=== PATIENT | male | born 1990 | race Caucasian/White ===

== ENCOUNTER 2018-12-28 13:06 | Inpatient (IN) ==
[2018-12-28 14:15] LABS: BASO# 0.01 X1000 (0.0-0.2); BASO% 0.1 % (0.0-0.8); EOS# 0.08 X1000 (0.0-0.7); EOS% 0.6 % (0.0-10.0); HEMATOCRIT 40.3 % (42.0-52.0); HEMOGLOBIN 13.5 g/dL (14.0-18.0); IMM GRAN# 0.02 X1000 (0.0-0.04); IMM GRAN% 0.1 % (0.0-0.5); LYMPH# 0.83 X1000 (1.2-3.4); LYMPH% 6.2 % (20.5-51.1); MCHC 33.5 g/dL (33-37); MCV 83.6 FL (81-99); MONO# 0.83 X1000 (0.11-0.59); MONO% 6.2 % (1.7-9.3); MPV 9.9 FL (7.4-10.4); NEUT# 11.65 X1000 (1.4-6.5); NEUT% 86.8 % (42.2-75.2); PLT 260 X1000 (130-400); RBC 4.82 XMIL (4.7-6.1); RDW 15.4 % (11.5-14.5); WBC 13.42 X1000 (4.8-10.8)
[2018-12-28 14:52] LABS: ALBUMIN 4.1 g/dL (3.5-5.0); CALCIUM 9.4 mg/dL (8.8-10.2); CREATININE 1.4 mg/dL (0.7-1.2); POTASSIUM 3.9 mmol/L (3.5-5.1); TOTAL BILIRUBIN 0.3 mg/dL (0.20-1.00); TOTAL PROTEIN 8.1 g/dL (6.3-8.3)
[2018-12-28] MEDS ORDERED: TORADOL IM ONE (15:19)
[2018-12-28] MEDS ORDERED: TORADOL IV ONE (15:25)
--- NOTE | 2018-12-28 16:28 | Diag Imaging Result Doc PS360 ---
CT EXT LOWER LEFT W/CON - 12/28/2018 INDICATION: SWELLING LT CALF CELLULITIS R/O ABSCESS VS NEC FA TECHNIQUE: CT left calf with intravenous contrast COMPARISON: None FINDINGS: In the medial belly of the gastrocnemius, there is an irregular, well-defined fluid collection with thin rim enhancement. This measures 3.6 x 4.2 x 5.7 cm in AP, lateral, and craniocaudal dimensions. There is surrounding subcutaneous edema extending down to the ankle. The arteries and veins of the lower leg all appear to be patent. Bones are intact. No soft tissue gas. IMPRESSION: Intramuscular abscess of the medial belly of the gastrocnemius of the left calf. Surrounding cellulitis of the lower leg. This exam was performed using automated exposure control, adjustment of mA or kV according to patient size, and/or use of iterative reconstruction technique Electronically signed by Sean Clark 12/28/2018 4:26 PM
--- NOTE | 2018-12-28 17:45 | PROVIDER DOCUMENTATION ---
This chart was entered by Pina Jeffers Scribe, acting as scribe for Rudolph Alexander DO. HPI-Musculoskeletal Pain/Inj - GENERAL Chief Complaint: Extremity Pain Stated Complaint: L-LEG KNOT/BLOOD CLOT? Time Seen by Provider: 12/28/18 13:54 Source: patient - HX OF PRESENT ILLNESS-MUSKULOSKELTAL Nature of Presenting Problem: Patient is a 28 year old male who presents with left lower leg pain with swelling and erythema that started 2 days ago. Report he is an IV drug user of Subutex. Denies history of Hep C and AIDS. Quality of Pain: reports: aching Severity in ED: mild Onset/Duration: 2 days ago Timing: still present, getting worse Modifying Factors: improves with: nothing Any recent injury?: No Locality of Occurance: Home Similar Symptoms Previously?: Yes (present for 2 days) Recently seen or treated by another doctor?: No - LOWER EXTREMITY PAIN/INJURY Lower Extremities Pain: leg: left (lower ) Context / Method of Injury: reports: unknown Associated Symptoms: reports: denies symptoms Review of Systems - Adult - REVIEW OF SYSTEMS - ADULT Constitutional: reports: fever. denies: chills, fatique Eyes: reports: no symptoms reported Ears, Nose, Mouth & Throat: reports: no symptoms reported Cardiovascular: reports: no symptoms reported Respiratory: reports: no symptoms reported Gastrointestinal: reports: no symptoms reported Genitourinary: reports: no symptoms reported Musculoskeletal: reports: see HPI, other (left lower leg pain). denies: back pain, neck pain Integumentary: reports: other (erythema to left lower leg). denies: hives, itching, rash Neurological: reports: no symptoms reported Psychiatric: reports: no symptoms reported Endocrine: reports: no symptoms reported Hematologic/Lymphatic: reports: no symptoms reported Allergic/Immunologic: reports: no symptoms reported All Other Systems: Reviewed and Negative Past History - Adult - PAST MEDICAL HISTORY-ADULT Review of Records: reports: Nursing Assessment Review, Medications Reviewed, Social history reviewed & non-contributory. Major Childhood Illnesses: reports: denies history Cardiovascular: reports: denies history Respiratory: reports: denies history Gastrointestinal: reports: denies history Obstetrical/Gynecological: reports: denies history Genitourinary: reports: denies history Musculoskeletal: reports: denies history Neurological: reports: denies history Psychiatric: reports: denies history Endocrine/Immune: reports: denies history Other Conditions: reports: denies history - PRIOR SURGERIES/PROCEDURES Surgical/Procedure History: reports: reviewed, not pertinent - IMMUNIZATION STATUS Childhood Immunizations: See Nurse Assessment Flu Vaccine: See Nurse Assessment - FAMILY HISTORY Family History: reviewed, not pertinent - SOCIAL HISTORY Smoking: cigarettes, greater than 1 pack/day Provider spent 3-5 mins advising pt. on dangers of tobacco.: Discussed manners to quit use, and f/u contacts for add'l counseling. Substance Use: other (Subutex) Physical Exam-Injury Related - Physical Exam-Injury Related Initial Vital Signs Reviewed: Yes General Appearance: alert, no apparent distress. negative: lethargic, slow to respond Neck: non-tender, normal inspection. negative: lymphadenopathy, tender lateral, tender midline Respiratory: chest non-tender, lungs clear, normal breath sounds. negative: crackles, rhonchi, wheezing Cardiovascular: normal peripheral pulses, regular rate, rhythm, systolic murmur (1/6 murmur at the apex.), other (mid systolic click). negative: tachycardia Peripheral Pulses: radial (R): 2+, radial (L): 2+, dorsalis-pedis (R): 2+, dorsalis-pedis (L): 1+ Abdominal Exam: normal bowel sounds, non tender, soft. negative: guarding, rebound Lymphatic: enlargement (left groin). negative: streaking Extremity: calf tenderness (left), erythema (left calf.), swelling (left lower leg), other (positive Savannah's sign to left. hardening to upper left calf. warmth present to left calf. left calf measuring 35 cm. right calf measuring 27 cm. multiple track solares to bilateral antecubital.). negative: deformity Integumentary: erythema (left calf), swelling (left lower leg), tenderness (left calf), warm (left calf), other (hardening to left calf. multiple track solares to bilateral antecubital.). negative: cyanosis, jaundice Neurologic: grossly normal. negative: aphasia, facial droop Psych/Mental Status: normal mood/affect, oriented x 3. negative: anxious, paranoid Progress - PLAN OF CARE/RESULTS Progress/Plan/Lab Results: Vital Signs - 8 hr 12/28/18 13:08 12/28/18 17:00 Temperature 100.9 F H 99.1 F Pulse Rate 96 H 82 Respiratory Rate 18 18 Blood Pressure 119/75 93/46 O2 Sat by Pulse Oximetry 100 92 L Laboratory Results - last 24 hr 12/28/18 12/28/18 13:52 13:52 WBC 13.42 H RBC 4.82 Hgb 13.5 L Hct 40.3 L MCV 83.6 MCH 28.0 MCHC 33.5 RDW Std Deviation 15.4 H Plt Count 260 MPV 9.9 Immature Gran % (Auto) 0.1 Neut % (Auto) 86.8 H Lymph % (Auto) 6.2 L Morris % (Auto) 6.2 Eos % (Auto) 0.6 Baso % (Auto) 0.1 Immature Gran # (Auto) 0.02 Neut # (Auto) 11.65 H Lymph # (Auto) 0.83 L Morris # (Auto) 0.83 H Eos # (Auto) 0.08 Baso # (Auto) 0.01 Sodium 140 Potassium 3.9 Chloride 104 Carbon Dioxide 25 Anion Gap 11 BUN 14 Creatinine 1.4 H Estimated GFR/1.73 m2 60 BUN/Creatinine Ratio 10 Glucose 144 H Calculated Osmolality 282 Calcium 9.4 Total Bilirubin 0.30 AST 21 ALT 10 Alkaline Phosphatase 92 Total Protein 8.1 Albumin 4.1 Globulin 4.0 Albumin/Globulin Ratio 1.0 Orders Category Date Time Status CT EXT LOWER LEFT W/CON [CT] Stat Exams 12/28/18 15:20 Completed CBC WITH DIFF [HEME] Stat Lab 12/28/18 13:52 Completed CMP [COMPREHENSIVE METABOLIC PANEL] [CHEM] Stat Lab 12/28/18 13:52 Completed UA NIMS W/REFLEX CULT PL [URINALYSIS] Stat Lab 12/28/18 18:56 Uncollected URINE DRUG SCREEN Stat Lab 12/28/18 18:56 Uncollected Ketorolac [Toradol] Med 12/28/18 15:25 Discontinued 30 mg IV NOW ONE Ketorolac [Toradol] Med 12/28/18 15:19 Discontinued 60 mg IM NOW ONE Nicotine Patch [Nicoderm Patch] Med 12/28/18 18:50 Discontinued 21 mg TD NOW ONE Venous U/S Left Leg Stat Ther 12/28/18 14:30 Completed Result Diagrams: 12/28/18 13:52 12/28/18 13:52 - CT/MRI 1 CT Study: Lower Ext (left) Impression: See EMR Report (CT EXT LOWER LEFT W/CON - 12/28/2018 INDICATION: SWELLING LT CALF CELLULITIS R/O ABSCESS VS NEC FA TECHNIQUE: CT left calf with intravenous contrast COMPARISON: None FINDINGS: In the medial belly of the gastrocnemius, there is an irregular, well-defined fluid collection with thin rim enhancement. This measures 3.6 x 4.2 x 5.7 cm in AP, lateral, and craniocaudal dimensions. There is surrounding subcutaneous edema extending down to the ankle. The arteries and veins of the lower leg all appear to be patent. Bones are intact. No soft tissue gas. IMPRESSION: Intramuscular abscess of the medial belly of the gastrocnemius of the left calf. Surrounding cellulitis of the lower leg. This exam was performed using automated exposure control, adj ustment of mA or kV according to patient size, and/or use of iterative reconstruction technique Electronically signed by Sean Clark 12/28/2018 4:26 PM 12/28/18 1626 Interpreting Physician: Sean Clark MD Dictated Date/Time: 12/28/18 1033 cc: Rudolph Alexander DO; None,PCP) - ULTRASOUND (By Radiology) 1 US Study: Lower Ext (left) Impression: Normal (no DVT per US tech.), See EMR Report - CONSULTS/PCP/HOSPITALIST Notification #1 *Consult/PCP/Hospitalist*: DR. VITALY RICE --WILL DO SURG IN THE AM Time Discussed: 19:45 (ADMIT HOSPITALIST GEN SURG CONSULT) #2 Consult: DR RICE Time Discussed: 19:30 (WILL DO SURG IN AM NPO TONIGHT ) Departure - Departure Date of Disposition Decision: 12/28/18 Time of Disposition Decision: 19:56 DIAGNOSIS: Cellulitis of leg, left, Abscess Disposition: ADMITTED INPATIENT 09 Certified Medical Emergency: Emergent Condition: Stable Referrals and Follow-Ups: None,PCP [Primary Care Provider] - Discharge Education: Steps to Quit Smoking, Ueyz-ma-Hlor, Substance Use Diso rder - Critical Care Note This patient required my direct & personal management of CC.: No Attestation - Physician/ LUBA Attestation Patient care was provided by Advanced Practice Provider:: No The physician spent face to face time with patient:: Yes Advanced Practice Provider documentation review:: Supervising physician onsite and consulted in the evaluation and care of this patient. The physician did have a face to face encounter with the patient. This chart was documented by the indicated scribe, (Pina Jeffers Scribe) and acc urately reflects the services I performed and decisions made by , Rudolph Alexander DO, as attested by the provider's signature.
[2018-12-28] MEDS ORDERED: NICODERM PATCH TD ONE (18:50)
[2018-12-28 20:53] LABS: URINE SOURCE CLEAN CATCH
[2018-12-28 21:11] LABS: UR AMPHETAMINES QUAL PRESUMPTIVE POSITIVE (NONE DETECT); UR BARBITUATES QUAL NONE DETECTED (NONE DETECT); UR BENZODIAZEPIN QUAL PRESUMPTIVE POSITIVE (NONE DETECT); UR CANNABINOIDS QUAL NONE DETECTED (NONE DETECT); UR COCAINE QUAL NONE DETECTED (NONE DETECT); UR METHADONE QUAL NONE DETECTED (NONE DETECT); UR OPIATES QUAL NONE DETECTED (NONE DETECT); UR OXYCODONE QUAL NONE DETECTED (NONE DETECT); UR PCP QUAL NONE DETECTED (NONE DETECT)
[2018-12-28 21:15] LABS: BILIRUBIN URINE NEGATIVE (NEGATIVE); BLOOD URINE NEGATIVE (NEGATIVE); COLOR YELLOW; GLUCOSE URINE NEGATIVE (NEGATIVE); KETONE URINE NEGATIVE (NEGATIVE); LEUKOCYTES URINE NEGATIVE (NEGATIVE); NITRITE URINE NEGATIVE (NEGATIVE); PROTEIN URINE TRACE mg/dL (NEGATIVE); SP GRAVITY URINE > 1.050; TURBIDITY URINE CLEAR (CLEAR); UROBILINOGEN URINE NORMAL (NORMAL)
[2018-12-28 21:33] LABS: UR EPITHELIAL CELLS >10 /HPF (<10); URINE BACTERIA NEGATIVE /HPF; URINE CASTS GRANULAR PRESENT; URINE CRYSTALS NONE SEEN; URINE RBC <10 /HPF (<10); URINE SMALL ROUND CELLS NONE SEEN; URINE WBC 20-40 /HPF (<10); URINE YEAST NONE SEEN
[2018-12-28] MEDS ORDERED: ZOFRAN IV PRN (22:38)
[2018-12-28] MEDS ORDERED: VANCOMYCIN IV PER PHARMACY MISC SCH (22:38)
[2018-12-28] MEDS ORDERED: TYLENOL PO PRN (22:38)
[2018-12-28] MEDS: NS 1,000 ML IV SCH (23:21)
[2018-12-28] MEDS: LOVENOX SUBQ SCH (23:36)
[2018-12-28] MEDS: CLINDAMYCIN 600 MG/D5W 600 MG/50 ML IVPB IV SCH (23:53)
[2018-12-29] MEDS ORDERED: VANCOMYCIN 1,800 MG in NS 250 ML IV ONE (01:30)
--- NOTE | 2018-12-29 03:31 | HISTORY AND PHYSICAL ---
CHIEF COMPLAINT: Calf pain. HISTORY OF PRESENT ILLNESS: This is a 28-year-old male with no past medical history other than narcotic abuse with chronic Subutex use. He sometimes shoots up the Subutex. At any rate, he came in with a complaint of swelling to his left calf that came up 2 days ago. He was worried that he possibly had a blood clot. A CT scan was obtained of the calf which showed an intramuscular abscess of the medial belly of the gastrocnemius of the left calf with surrounding lower leg cellulitis. The abscess measured 3.6 x 4.[address] Aquino was consulted and will see the patient tomorrow morning for surgical intervention. He will be placed on IV antibiotics and has been admitted to the medical floor. PAST MEDICAL HISTORY: IV drug use and chronic opioid dependence. PREVIOUS SURGICAL HISTORY: Right fifth digit repair and left ankle repair. SOCIAL HISTORY: Lives at home with his parents. Does not work. Smokes 1 pack of cigarettes per day. Uses alcohol occasionally. Uses IV Subutex occasionally. FAMILY HISTORY: Denies any chronic illnesses in first-degree relatives. ALLERGIES: Morphine, penicillin and tramadol. HOME MEDICATIONS: Subutex 8 mg sublingual daily. REVIEW OF SYSTEMS: Fourteen-point review of systems conducted with the patient. He has had left warmth, calf pain, subjective fever and chills. All other systems reviewed and found to be negative. Other pertinent positives listed above in the HPI. PHYSICAL EXAMINATION: VITAL SIGNS: Temperature 98.7, pulse 80, respirations 19, blood pressure 103/70, oxygen saturation 100% on room air. GENERAL: Pleasant 28-year-old male lying in the medical floor bed, answers all questions appropriately, alert and oriented x3. HEENT: Head is atraumatic, normocephalic. Pupils equal, round, reactive to light. Extraocular eye movement intact. Sclerae are anicteric. Conjunctiva is pink. Oral mucosa is dry. NECK: Supple. No JVD. No thyromegaly. Trachea is midline. No cervical lymphadenopathy. CARDIAC: S1, S2 appreciated. No murmurs, gallops or rubs. LUNGS: Clear to auscultation bilaterally. No rhonchi, wheezes, rales. Symmetric rise and fall with respirations. ABDOMEN: Soft, nondistended and nontender. Bowel sounds present all 4 quadrants, normoactive. No pulsatile mass. No organomegaly. EXTREMITIES: No clubbing, cyanosis, or edema. Left calf is warm to touch, roughly 3 cm area of induration noted by palpation to the left calf. Mild erythema noted. GENITOURINARY: No bladder distention. Patient voids. Otherwise deferred. NEUROLOGICAL: Alert and oriented x3. No focal motor deficits. Otherwise nonfocal examination. DIAGNOSTIC DATA: WBC 13.42, hemoglobin 13.5, hematocrit 40.3, platelet count 260,000. Sodium 140, potassium 3.9, chloride 104, carbon dioxide 25, BUN 14, creatinine 1.4, glucose 144. Urine unremarkable. Toxicology screen positive for benzodiazepines and amphetamines. ASSESSMENT AND PLAN: 1. Left leg cellulitis with abscess. Will treat with vancomycin and clindamycin. He received Toradol in the emergency room. Will give Tylenol as needed for pain. Consult Dr. Aquino for drainage of intramuscular abscess. 2. Tobacco dependence. Will give nicotine patch. 3. Polysubstance abuse. Counseled the patient on the perils of taking drugs intravenously. He noted that he understood. 4. Leukocytosis secondary to #1. 5. Fluid volume depletion with mild acute kidney injury. Normal saline at 125 mL/hour. 6. Further recommendations per the patient's clinical course. Dictated by AVINASH Cowart for Mirna Ireland MD cc: AVINASH Cowart MD Independent exam performed by me at bedside and was notable for 4x4cm swelling of the L medial gastrocnemius area without any overlying erythema. The swelling is not attached to surrounding structures and is moderately tender and well circumscribed. Consider echo if persistent bacteremia persists. MTDD
[2018-12-29] MEDS: CLINDAMYCIN 600 MG/D5W 600 MG/50 ML IVPB IV SCH ×2 (06:11→18:03)
--- NOTE | 2018-12-29 06:20 | GENERAL SURGERY CONSULTATION ---
DATE: 12/29/2018 REQUESTING PHYSICIAN: Hospitalist. REASON FOR CONSULTATION: Consult concerning abscess in the leg. HISTORY OF PRESENT ILLNESS: A 28-year-old gentleman, with no real past medical history other than narcotic abuse, who presents with leg swelling. He does have a history of sometimes shooting up his Subutex. He has had swelling in his left calf for 2 days. He denies any injections in the area. He was concerned initially he had a blood clot. He came in and had a CT scan that showed an abscess. He has been admitted to the hospitalist service and started on IV antibiotics. I was asked to weigh an opinion. He is still hurting in the left calf. PAST MEDICAL HISTORY: IV drug abuse, and chronic opioid dependency. PAST SURGICAL HISTORY: Previous orthopedic repairs. SOCIAL HISTORY: Lives at home. Smokes. History of narcotic abuse. FAMILY HISTORY: Denies any major medical problems. ALLERGIES: Morphine, penicillin, and tramadol. HOME MEDICATIONS: Subutex sublingual. REVIEW OF SYSTEMS: A full 10 point review of systems obtained and negative except as specified in the HPI. PHYSICAL EXAMINATION: Vital Signs: The patient's current temperature is 101.4 degrees. The remainder of vital signs have been stable. General: No acute distress. Alert, interactive, male, looks stated age. HEENT: Normocephalic, atraumatic. Pupils equal, round, and reactive to light. Mucous membranes moist. Oropharynx benign. Neck: Supple. Trachea midline. Cardiovascular: Regular rate and rhythm. Lungs: Grossly clear. Abdomen: Soft, nontender, nondistended. Extremities: Swelling noted in the left calf posteriorly. Used the ultrasound to identify the fluid collection. I was able to aspirate purulence, which we sent for culture. Vascular: All extremities perfused. Skin: As noted above. Neurologic: Grossly intact. LABORATORY: White blood cell count 13, hematocrit 40, platelet count 260,000. The remainder of labs are reviewed. Urine drug screen reviewed. ASSESSMENT AND PLAN: A 28-year-old gentleman with left calf abscess. Left calf abscess: At this time, it looks intramuscular. We will plan on incision and drainage in the operating room today. He has been made NPO. We discussed the risks, benefits, and alternatives. We will plan on intervention today. cc: Andrew Aquino MD
[2018-12-29 06:53] LABS: BASO# 0.01 X1000 (0.0-0.2); BASO% 0.1 % (0.0-0.8); EOS# 0.06 X1000 (0.0-0.7); EOS% 0.4 % (0.0-10.0); HEMATOCRIT 34.8 % (42.0-52.0); HEMOGLOBIN 11.6 g/dL (14.0-18.0); IMM GRAN# 0.03 X1000 (0.0-0.04); IMM GRAN% 0.2 % (0.0-0.5); LYMPH# 1.83 X1000 (1.2-3.4); LYMPH% 13.7 % (20.5-51.1); MCHC 33.3 g/dL (33-37); MCV 83.9 FL (81-99); MONO# 1.32 X1000 (0.11-0.59); MONO% 9.9 % (1.7-9.3); MPV 9.6 FL (7.4-10.4); NEUT# 10.15 X1000 (1.4-6.5); NEUT% 75.7 % (42.2-75.2); PLT 256 X1000 (130-400); RBC 4.15 XMIL (4.7-6.1); RDW 15.3 % (11.5-14.5)
[2018-12-29 07:22] LABS: AGAP 8; BUN 11 mg/dL (8-22); CALCIUM 8.2 mg/dL (8.8-10.2); CHLORIDE 105 mmol/L (98-107); COSMO 274; CREATININE 0.9 mg/dL (0.7-1.2); ESTIMATED GFR > 60; GLUCOSE 112 mg/dL (70-104); POTASSIUM 3.7 mmol/L (3.5-5.1); SODIUM 137 mmol/L (136-145); TCO2 24 mmol/L (25-35)
--- NOTE | 2018-12-29 10:32 | PROGRESS NOTE ---
DATE: 12/29/2018 SUBJECTIVE: Patient reports still complaining of fever and pain in the left leg. OBJECTIVE: Vital Signs: Temperature 101.4 degrees, heart rate 86, respiratory rate 18, blood pressure 100/55, O2 saturation 97% on room air. General Examination: This is a 28-year-old male, lying in bed, in no acute distress. Cardiovascular: S1, S2 heard. No murmurs, gallops, or rubs. Regular rate and rhythm. Respiratory: Clear bilaterally to auscultation. No work of breathing or using accessory muscles. Abdomen: Soft, nontender to palpation. Bowel sounds present. No organomegaly. Extremities: Left calf is warm to touch, covered by dressing now. Neurological: Patient is alert and oriented x3. Moves 4 extremities. LABORATORY DATA: Reviewed. White cell count 13.4. Normal BMP. ASSESSMENT AND PLAN: 1. Left leg cellulitis with an abscess. Dr. Aquino from General Surgery has evaluated this patient. He is going to be taken to the OR today. We will continue with vancomycin and clindamycin. 2. IV drug abuse. Patient is using IV drugs. He is still complaining of fever that has been documented in the chart. So, at this point, I checked with the patient and he is okay to do a hepatitis panel and HIV. We are NOT going to use any opiates for managing pain on this patient. 3. Leukocytosis, still elevated. 4. Acute kidney injury. Resolved. 5. Disposition. We are following the lead from General Surgery. cc: Charlie Walker MD MTDD
[2018-12-29] MEDS: NICODERM PATCH TD SCH (11:21)
[2018-12-29] MEDS: SUBUTEX SL SCH (11:21)
[2018-12-29] MEDS ORDERED: DIPRIVAN 1% ONE (11:46)
[2018-12-29] MEDS ORDERED: FENTANYL ONE (11:46)
[2018-12-29] MEDS ORDERED: ROBINUL ONE (11:47)
[2018-12-29] MEDS ORDERED: XYLOCAINE-MPF 2% ONE (11:47)
[2018-12-29] MEDS ORDERED: PRECEDEX ONE (12:10)
[2018-12-29] MEDS ORDERED: SODIUM CHLORIDE 0.9% 20 ML ONE (12:11)
[2018-12-29] MEDS ORDERED: OFIRMEV 1000 MG/ISOTONIC SOLN 1,000 MG/100 ML BOTTLE ONE (12:11)
--- NOTE | 2018-12-29 13:43 | OPERATIVE NOTE ---
PROCEDURE DATE: 12/29/2018 PREOPERATIVE DIAGNOSIS: Left intramuscular abscess of the calf. POSTOPERATIVE DIAGNOSIS: Left intramuscular abscess of the calf. PROCEDURE PERFORMED: Ultrasound-guided incision and drainage of left calf intramuscular abscess. SURGEON: Dr. Andrew Aquino. SUPERVISOR MOLD YARD: None. ANESTHESIA: General endotracheal. INTRAOPERATIVE FINDINGS: Ultrasound showed the area in the calf of abscess, able to lee it on the skin. COMPLICATIONS: None at time of this dictation. ESTIMATED BLOOD LOSS: 10 mL. SPECIMENS REMOVED: None. BRIEF HISTORY: A 28-year-old gentleman who had a left leg abscess. It was felt he would benefit from drainage. The risks, benefits, and alternatives were discussed. All questions answered. DESCRIPTION OF PROCEDURE: After informed consent was obtained, patient was brought to the operative theatre, transferred to the operating table, placed in the supine position. General endotracheal anesthesia was then performed without complication. A formal time-out was then performed confirming patient, date, procedure. All were in agreement at that time. Attention was given to the left leg, which was prepped and draped in sterile fashion. After a time-out, we used the ultrasound to identify the area where most of the abscess was located. We marked this on the skin, and made an incision along the longitudinal axis of the leg, carried down through the muscles. It was intramuscular abscess. I was able to drain it. We irrigated it out. It did track significantly close to the bone, but did not involve the bone. We irrigated out until the suction fluid was clear. We then packed quarter-inch iodoform packing into the wound. We placed a sterile dressing. The patient tolerated the procedure well, was transferred back to the recovery room in stable condition. cc: Andrew Aquino MD
--- NOTE | 2018-12-29 14:42 | Extremity Venous Study ---
PROCEDURE NAME: Venous U/S Left Leg - 12/28/2018 REQUESTING PHYSICIAN: Dr. Alexander. ENTRY LEVEL AUTOMOTIVE TECHNICIAN: Riddhi. INDICATIONS: Painful calf knot. EQUIPMENT: [employer] Vivid E9 ultrasound system with a 9 L-D transducer. FINDINGS: Images of the left lower extremity venous system with a comparison shot to the right common femoral vein were obtained in both sagittal and transverse planes. Doppler was used to evaluate veins for spontaneity, phasicity, respiratory excursion, and digital augmentation. RESULTS: A complex mass was noted in the left calf which may represent a mass versus abscess. I recommend getting a dedicated CT study of the lower extremity. There was no obvious superficial or deep venous thrombosis noted on this study. cc: Andrew Aquino MD
--- NOTE | 2018-12-29 16:17 | ECHO REPORT ---
ORDER DATE: 12/29/2018 INTERPRETING PHYSICIAN: Dr. Medrano INDICATIONS: A 28-year-old male with drug abuse, fever, and endocarditis suspected. M-MODE MEASUREMENTS: Left ventricle end diastole: 4.2 cm. Left ventricle end systole: 2.5 cm. Posterior wall: 1.0 cm. Interventricular septum: 1.0 cm. Left atrium: 2.7 cm. Aortic diameter: 2.8 cm. SUMMARY OF 2-DIMENSIONAL IMAGIN. Left ventricular function is normal. Ejection fraction estimated at 60% to 65%. No wall motion abnormality noted. 2. The aortic valve appears to be grossly normal. It has three cusps. Color flow mapping unremarkable. 3. The pulmonic valve appears to be grossly normal. Color flow mapping unremarkable. 4. The tricuspid valve appears to be grossly normal. Color flow mapping unremarkable. 5. The mitral valve looks grossly normal. Color flow mapping unremarkable. 6. Pulsed wave Doppler of mitral inflow appears to be normal. 7. Tissue Doppler of septal and lateral mitral annulus is normal. There is no diastolic dysfunction. 8. There is no pericardial effusion, mass or thrombus. 9. The chambers are not dilated. CONCLUSIONS: In summary, this echocardiographic study appears to be essentially normal and I do not see evidence of any endocarditis. If patient demonstrates positive blood cultures for MRSA or another germ that typically causes endocarditis, consider doing a VELMA. cc: MD Charlie Cao MD
[2018-12-29 17:57] LABS: HIV ANTIBODY SCREEN SEE COMMENTS
[2018-12-29] MEDS: NS 1,000 ML IV SCH ×2 (18:02→18:03)
[2018-12-29] MEDS: LOVENOX SUBQ SCH (23:37)
[2018-12-30] MEDS ORDERED: VANCOMYCIN 1,650 MG in NS 250 ML IV SCH ×2 (01:30→14:00)
[2018-12-30] MEDS: NS 1,000 ML IV SCH ×3 (01:41→15:41)
[2018-12-30] MEDS: CLINDAMYCIN 600 MG/D5W 600 MG/50 ML IVPB IV SCH ×2 (01:41→08:40)
--- NOTE | 2018-12-30 06:12 | GENERAL SURGERY PROGRESS NOTE ---
DATE: 12/30/2018 SUBJECTIVE: Patient seems to be doing okay. OBJECTIVE: Vital Signs: Patient is currently afebrile. His vital signs are stable. General: No acute distress. Cardiovascular: Regular rate and rhythm. Lungs: Grossly clear. Abdomen: Soft, nontender, nondistended. Extremities: Left leg seems to be less tender. Removed packing. Nurse to place of Vashe wet-to-dry dressing. The patient tolerated removal fine. Microbiology cultures are still pending. ASSESSMENT AND PLAN: A 28-year-old gentleman status post incision and drainage of intramuscular abscess in the left calf. Status post drainage. At this time, recommend continuing antibiotics. He had a deep abscess to the area near the bone but not involving the bone. We will consult Infectious Disease for antibiotic recommendation. cc: Andrew Aquino MD
[2018-12-30 06:28] LABS: BASO# 0.02 X1000 (0.0-0.2); BASO% 0.2 % (0.0-0.8); EOS# 0.14 X1000 (0.0-0.7); EOS% 1.3 % (0.0-10.0); HEMATOCRIT 33.5 % (42.0-52.0); HEMOGLOBIN 10.8 g/dL (14.0-18.0); IMM GRAN# 0.02 X1000 (0.0-0.04); IMM GRAN% 0.2 % (0.0-0.5); LYMPH# 1.94 X1000 (1.2-3.4); LYMPH% 18.1 % (20.5-51.1); MCH 27.3 PG (27-31); MCHC 32.2 g/dL (33-37); MCV 84.8 FL (81-99); MONO# 1.18 X1000 (0.11-0.59); MPV 9.9 FL (7.4-10.4); NEUT# 7.43 X1000 (1.4-6.5); NEUT% 69.2 % (42.2-75.2); PLT 238 X1000 (130-400); RBC 3.95 XMIL (4.7-6.1); RDW 15.3 % (11.5-14.5); WBC 10.73 X1000 (4.8-10.8)
[2018-12-30 06:47] LABS: AGAP 6; BUN 11 mg/dL (8-22); CHLORIDE 112 mmol/L (98-107); COSMO 286; CREATININE 0.7 mg/dL (0.7-1.2); ESTIMATED GFR > 60; GLUCOSE 124 mg/dL (70-104); POTASSIUM 3.9 mmol/L (3.5-5.1); SODIUM 143 mmol/L (136-145); TCO2 25 mmol/L (25-35)
[2018-12-30] MEDS: SUBUTEX SL SCH (08:47)
[2018-12-30] MEDS: NICODERM PATCH TD SCH (08:47)
--- NOTE | 2018-12-30 12:22 | PROGRESS NOTE ---
DATE: 12/30/2018 SUBJECTIVE: The patient reports still complaining of some pain in the left leg after surgery. The patient also has had fever, last time 101 at noon yesterday. OBJECTIVE: Vital Signs: Temperature 97.7 degrees, heart rate 63, respiratory rate 16, blood pressure 118/74, O2 saturation 95% on room air. General: This is a 28-year-old male, lying in bed in no acute distress. Cardiovascular: S1, S2 heard. No murmurs, gallops, or rubs. Regular rate and rhythm. Respiratory: Clear bilaterally to auscultation. No work of breathing or using accessory muscles. Abdomen: Soft. Nontender to palpation. Bowel sounds present. No organomegaly. Extremities: No clubbing, cyanosis, or edema. Peripheral pulses in both legs. Left is covered by dressing. Neurological: The patient is alert and oriented x3. Moves all 4 extremities. LABORATORY DATA: Reviewed. ASSESSMENT AND PLAN: 1. Left leg cellulitis with an abscess. Dr. Aquino from General Surgery has taken this patient to the operating room and drained this abscess. Because the infection was really close to the bone, although microscopically, it did not look like the bone was compromised, he decided to consult Dr. Venegas from Infectious Disease for management of antibiotics. We agreed with the plan. At this point, the patient is on vancomycin and clindamycin since admission. 2. Intravenous drug abuse. The patient used to use Suboxone that he crushed and shot in the vein. He also reports that he is taking Klonopin. We are going to check the [place] [employer] Monitoring Program if he is taking Klonopin. If not, of course, we are not going to continue with that medication. So far, human immunodeficiency virus exam is negative, and hepatitis panel is still pending. 3. Acute kidney injury, resolved. 4. Disposition. Will follow along with General Surgery and Infectious Disease. cc: Charlie Walker MD
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
[2018-12-30] MEDS: ZYVOX PO SCH (18:05)
[2018-12-30] MEDS: CIPRO PO SCH (18:05)
[2018-12-30] MEDS: PERIDEX MT SCH (20:37)
[2018-12-30] MEDS: LOVENOX SUBQ SCH (20:37)
[2018-12-31] MEDS: LOVENOX SUBQ SCH (02:57)
[2018-12-31] MEDS: ZYVOX PO SCH (05:12)
[2018-12-31] MEDS: NS 1,000 ML IV SCH (05:12)
[2018-12-31 07:15] LABS: BASO# 0.02 X1000 (0.0-0.2); BASO% 0.2 % (0.0-0.8); EOS# 0.23 X1000 (0.0-0.7); EOS% 2.5 % (0.0-10.0); HEMATOCRIT 34.2 % (42.0-52.0); HEMOGLOBIN 11.2 g/dL (14.0-18.0); IMM GRAN# 0.02 X1000 (0.0-0.04); IMM GRAN% 0.2 % (0.0-0.5); LYMPH# 2.03 X1000 (1.2-3.4); LYMPH% 22.4 % (20.5-51.1); MCH 27.7 PG (27-31); MCHC 32.7 g/dL (33-37); MCV 84.4 FL (81-99); MONO# 0.83 X1000 (0.11-0.59); MONO% 9.2 % (1.7-9.3); MPV 10.2 FL (7.4-10.4); NEUT# 5.92 X1000 (1.4-6.5); NEUT% 65.5 % (42.2-75.2); PLT 273 X1000 (130-400); RBC 4.05 XMIL (4.7-6.1); RDW 15.3 % (11.5-14.5); WBC 9.05 X1000 (4.8-10.8)
[2018-12-31 07:22] VITALS: BP 131/76
[2018-12-31 07:42] LABS: AGAP 8; BUN 9 mg/dL (8-22); CALCIUM 8.3 mg/dL (8.8-10.2); CHLORIDE 109 mmol/L (98-107); COSMO 282; CREATININE 0.9 mg/dL (0.7-1.2); ESTIMATED GFR > 60; GLUCOSE 101 mg/dL (70-104); POTASSIUM 3.7 mmol/L (3.5-5.1); SODIUM 142 mmol/L (136-145); TCO2 25 mmol/L (25-35)
--- NOTE | 2018-12-31 07:45 | GENERAL SURGERY PROGRESS NOTE ---
DATE: 12/31/2018 SUBJECTIVE: Patient seems to be doing okay. OBJECTIVE: Vital Signs: Patient is currently afebrile. His vital signs stable. General: No acute distress. Cardiovascular: Regular rate and rhythm. Lungs: Grossly clear. Abdomen: Soft, nontender, nondistended. Extremities: Dressing intact to the left lower extremity. No spreading erythema. ASSESSMENT AND PLAN: A 28-year-old gentleman status post incision and drainage of intramuscular abscess in the left thigh. Status post drainage. At this time, defer antibiotic duration to infectious disease. From a surgical point of view, he can probably be discharged once okay with Infectious Disease and the Hospitalists, to local wound continue care, I need to see the patient back in my office in 1 to 2 weeks. cc: Andrew Aquino MD
[2018-12-31] MEDS: PERIDEX MT SCH (09:08)
[2018-12-31] MEDS: CIPRO PO SCH (09:09)
[2018-12-31] MEDS: SUBUTEX SL SCH (09:09)
[2018-12-31] MEDS: NICODERM PATCH TD SCH (09:09)
[2018-12-31 13:20] LABS: HEPATITIS PROFILE ACUTE SEE COMMENTS
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
== END 2018-12-31 12:42 | disposition home or self-care (01) | DRG 854 ==
LOC: ED 13:06 → SUATTDRO 22:15 → 4N 22:15
PROVIDERS: ATTEND Internal Medicine
CPT/HCPCS: 73701; 80048; 80053; 80074; 80101; 80301; 80307; 80324; 80345; 80346; 80353; 80358; 80361; 80365; 81001; 83992; 84443; 85025; 86592; 86701; 87040; 87070; 87088; 87389; 93306; 93971; 94760; 94761; 94799; 96372; 99285; A9270; G0431; G0434; G0479; G0480; J0131; J1650; J1885; J3010; J3370; J7030; J7050; Q9967